=== PATIENT | male | born 1980 | race Caucasian/White ===

== ENCOUNTER 2020-08-09 10:00 | Day surgery (SDC) | payer OTHER ==
[~2020-08-09] VITALS: Ht 188 cm; Wt 95.9 kg
[~2020-08-09 10:00] MED LIST: BACITRACIN 50,000 UNIT ONE; BUPIVACAINE/PF 0.25% ONE; EPINEPHRINE 1 MG/ML, 1ML ONE; NEOSPORIN OINT, 15GM ONE
[2020-08-09] MEDS ORDERED: NO MEDS PER PT (10:36)
[2020-08-09 10:53] VITALS: BP 125/72
[2020-08-09] MEDS ORDERED: LACTATED RINGERS 1,000 ML IV SCH (11:00)
[2020-08-09] MEDS ORDERED: CHLORHEXIDINE 15 ML UDC MM ONE (11:00)
[2020-08-09] MEDS ORDERED: MIDAZOLAM 1 MG/ML, 2ML ONE (11:48)
[2020-08-09] MEDS ORDERED: FENTANYL PF 250 MCG/5ML ONE (11:49)
[2020-08-09] MEDS ORDERED: PROPOFOL 50 ML ONE (11:57)
[2020-08-09] MEDS ORDERED: BUPIVACAINE/PF 0.25% ONE (12:06)
[2020-08-09] MEDS ORDERED: EPINEPHRINE 1 MG/ML, 1ML ONE (12:06)
[2020-08-09] MEDS ORDERED: ONDANSETRON 2MG/ML, 2ML ONE (12:45)
[2020-08-09] MEDS ORDERED: NEOSTIGMINE 1 MG/ML, 10ML ONE (12:45)
[2020-08-09] MEDS ORDERED: PROPOFOL 10 MG/ML, 20ML ONE (12:45)
[2020-08-09] MEDS ORDERED: GLYCOPYRROLATE 0.2MG/1ML, 5ML ONE (12:45)
[2020-08-09] MEDS ORDERED: DEXAMETHASONE 4 MG/ML, 1ML ONE (12:45)
[2020-08-09] MEDS ORDERED: CEFAZOLIN 1,000 MG ONE (12:45)
[2020-08-09] MEDS ORDERED: FENTANYL PF 100 MCG/2ML ONE (14:13)
[2020-08-09] MEDS ORDERED: OXYcodone 5 MG/5 ML ORAL.SOL UDC ONE (14:14)
[2020-08-09] MEDS ORDERED: HYDROmorphone 1 MG/ML, 1ML INJ ONE (14:14)
[2020-08-09] MEDS: HYDROmorphone 1 MG/ML, 1ML INJ IVPush PRN ×3 (14:18→14:30)
[2020-08-09] MEDS ORDERED: KETOROLAC 30 MG/1 ML ONE (14:24)
[2020-08-09] MEDS ORDERED: LABETALOL 5MG/ML, 20ML IV PRN (14:30)
[2020-08-09] MEDS ORDERED: PROMETHAZINE 25 MG/ML, 1ML IVPush PRN (14:30)
[2020-08-09] MEDS ORDERED: METHOCARBAMOL 1,000 MG in DEXTROSE 5% 100 ML IV PRN (14:30)
[2020-08-09] MEDS ORDERED: EPHEDRINE 50 MG/ML, 1ML IVPush PRN (14:30)
[2020-08-09] MEDS ORDERED: OXYcodone 5 MG/5 ML ORAL.SOL UDC PO PRN (14:30)
[2020-08-09] MEDS ORDERED: MEPERIDINE/PF 25MG/0.5ML IVPush PRN (14:30)
[2020-08-09] MEDS ORDERED: FENTANYL PF 100 MCG/2ML IV PRN (14:30)
[2020-08-09] MEDS ORDERED: ONDANSETRON 2MG/ML, 2ML IVPush PRN (14:30)
[2020-08-09] MEDS ORDERED: KETOROLAC 30 MG/1 ML IVPush PRN (14:30)
[2020-08-09] MEDS ORDERED: ACETAMINOPHEN 325 MG TABLET PO PRN (14:30)
[2020-08-09] MEDS ORDERED: LORazepam 2 MG/ML, 1ML IVPush PRN (14:30)
[2020-08-09] MEDS ORDERED: hydrALAzine 20 MG/ML, 1ML IV PRN (14:30)
== END 2020-08-09 16:10 | disposition home or self-care (01) ==
LOC: OUT 10:00
PROVIDERS: ATTEND Orthopaedic Surgery
DX: S46.212A Strain of muscle, fascia and tendon of other parts of biceps, left arm, initial encounter (principal); X58.XXXA Exposure to other specified factors, initial encounter; Y93.89 Activity, other specified; Y92.89 Other specified places as the place of occurrence of the external cause; Y99.8 Other external cause status; Z88.2 Allergy status to sulfonamides; Z87.891 Personal history of nicotine dependence; Z98.890 Other specified postprocedural states; Z20.828 Contact with and (suspected) exposure to other viral communicable diseases
CPT/HCPCS: 24340; 73070; C1713; J0171; J0690; J1100; J1170; J1885; J2250; J2405; J2704; J2710; J2800; J3010; J7120; U0003; 76000